=== PATIENT | male | born 2005 | race African-American/Black ===

== ENCOUNTER 2024-04-17 19:39 | Emergency (ER) | payer SELFPAY ==
[2024-04-17] MEDS ORDERED: Loperamide HCl 2 MG CAP ONE (20:21)
[2024-04-17] MEDS ORDERED: Ondansetron ODT 4 MG TAB ONE (20:21)
== END 2024-04-17 20:30 | disposition home or self-care (01) ==
LOC: CSHERS 19:39
DX: R11.2 Nausea with vomiting, unspecified (principal); R19.7 Diarrhea, unspecified; F90.9 Attention-deficit hyperactivity disorder, unspecified type
CPT/HCPCS: 99283; Q0162